=== PATIENT | male | born 1955 | race Caucasian/White ===

== ENCOUNTER 2024-08-14 01:14 | Observation (INO) | payer MEDICARE ==
[2024-08-14] VITALS (15 sets, daily range): BP systolic 89–154; BP diastolic 41–99
[~2024-08-14] VITALS: Ht 152.4 cm; Wt 95.6 kg
--- NOTE | 2024-08-14 01:14 | NUR ---
PT NOT IN WAITING RM, REGISTRATION NOTIFIES RACECAR DRIVER THAT PT IS IN BR AT THIS TIME. WILL CALL WHEN PT RETURNS.
--- NOTE | 2024-08-14 01:23 | NUR ---
PT TO RM # 6 WITH STEADY GAIT, NOTIFIED, PT EKG TKN, CONNECTED TO CONTINUOUS MONITORING. A-FIB RVR NOTED, AWARE.
[2024-08-14] MEDS ORDERED: DILTIAZEM HCL 125 MG in SODIUM CHLORIDE 0.9% 100 ML IV ONE (01:30)
[2024-08-14] MEDS ORDERED: SODIUM CHLORIDE 0.9% 250 ML IV PRN (01:30)
[2024-08-14] MEDS ORDERED: dilTIAZem HCL 50 MG/10 ML SDV IV ONE (01:30)
[2024-08-14 01:43] LABS: BASO% 0.4 % (0-3); EOS% 4.6 % (0-8); HEMATOCRIT 48.6 % (39.0-50.0); HEMOGLOBIN 15.9 g/dl (14.0-18.0); IMMATURE GRANULOCYTES 0.8 % (0.0-5.0); LYMPH% 28.8 % (15-41); MEAN CELL VOLUME 94.9 fL CALC (80.0-100.0); MEAN CORPUSCULAR HGB 31.1 pG CALC (26.0-32.0); MEAN CORPUSCULAR HGB CONC 32.7 g/dL CAL (32.0-36.0); MONO% 9.5 % (2-13); NEUT# 4.24 thou/uL (1.82-7.42); NEUT% 55.9 % (42-76); RED BLOOD COUNT 5.12 mill/uL (4.70-6.10); RED CELL DISTRI WIDTH 12.8 % (11.5-15.5)
--- NOTE | 2024-08-14 01:55 | NUR ---
PT GTT MAINTAINED/TITRATED PER ORDERS, PT UPDATED/EDUCATED ON PLAN OF CARE AND CONDITION AT THIS TIME, URINE COLLECTED, AWAITING RESULTS AT THIS TIME.
[2024-08-14] MEDS ORDERED: TAMSULOSIN0.4 MG PO (02:04)
[2024-08-14] MEDS ORDERED: ATIVAN0.5 MG PO (02:04)
[2024-08-14 02:17] LABS: ACT PARTIAL THROMBO TIME 25.1 SECONDS (20.0-32.5)
[2024-08-14 02:18] LABS: ALBUMIN 4.7 g/dL (3.2-5.0); ALKALINE PHOSPHATASE 71 u/l (38-126); ANION GAP 14 (6-22 (CALC)); BILIRUBIN, TOTAL 0.8 mg/dL (0.2-1.3); BUN 11 mg/dL (8-23); BUN/CREATININE RATIO 9 (12-20 (CALC)); CARBON DIOXIDE 28 mmol/l (22-30); CHLORIDE 104 mmol/l (95-108); CREATININE 1.2 mg/dL (0.7-1.3); ESTIMATED GFR 65 ML/MIN (>=90 (CALC)); POTASSIUM 3.8 mmol/l (3.5-5.1); SGOT/AST 38 u/l (19-48); SODIUM 142 mmol/l (137-146); TOTAL PROTEIN 7.8 g/dL (6.3-8.2)
[2024-08-14 02:26] LABS: URINE BILIRUBIN - DIPSTICK Negative (NEGATIVE); URINE BLOOD DIPSTICK Trace-lysed (NEGATIVE); URINE GLUCOSE - DIPSTICK Negative (NEGATIVE); URINE KETONE Negative (NEGATIVE); URINE LEUK ESTERASE Negative (NEGATIVE); URINE NITRITE - DIPSTICK Negative (Negative); URINE PROTEIN - DIPSTICK Negative (NEG-TRACE); URINE SPECIFIC GRAVITY 1.015; URINE UROBILINOGEN - DIPSTICK 0.2 E.U./dL (0.2)
[2024-08-14 02:27] LABS: URINE COLOR Yellow
[2024-08-14 02:38] LABS: D-DIMER > 35.20 mg/L (0.19-0.60)
--- NOTE | 2024-08-14 02:50 | NUR ---
NOTIFIED DUE TO PT ELEVATED Rey-MD MATT VERBALIZES PLACE CTA CHEST AT THIS TIME.
--- NOTE | 2024-08-14 02:55 | NUR ---
PT NOTED TO BE CONVERTED TO NSR AT 72. PT GTT TITRATED DOWN AT THIS TIME, NAD NOTED, VSS, PT VOICES RELIEF OF PALPITATIONS. AWAITING ALL FURTHER RESULTS AND CT SCAN.
--- NOTE | 2024-08-14 03:15 | NUR ---
GTT TITRATED OFF AT THIS TIME, PT VS REMAIN STABLE, NAD NOTED, PT TO CT SCAN AT THIS TIME.
--- NOTE | 2024-08-14 04:00 | NUR ---
PT ON CONTINUOUS MONITOR, REMAINS NSR AT 60S HR, PT UPDATED ON CONTINUOUS PLAN OF CARE, NAD NOTED, PT REPEAT TROPONIN COLLECTED AT THIS TIME.
[2024-08-14] MEDS ORDERED: dilTIAZem HCl COATED BEADS 240 MG/CAP PO ONE (05:35)
--- NOTE | 2024-08-14 05:40 | NUR ---
PT UPDATED ON PLAN OF CARE, MD AT BEDSIDE FOR DISCUSSION OF ADMISSION, EKG REPEAT TKN, PT VSS, NAD NOTED, AWAITING RM ASSIGNMENT AND ACCEPTANCE FROM ADMITTING MD.
[2024-08-14] MEDS ORDERED: ACETAMINOPHEN 325 MG/TAB PO PRN (06:05)
[2024-08-14] MEDS ORDERED: Polyethylene Glycol 3350 17 GM/PKT PO PRN (06:05)
[2024-08-14] MEDS ORDERED: FAMOTIDINE 10MG/ML 2ML SDV IV PRN (06:05)
[2024-08-14] MEDS ORDERED: ONDANSETRON HCl 4 MG/2 ML SDV IV PRN (06:05)
[2024-08-14] MEDS ORDERED: ONDANSETRON 4 MG/TAB ODT PO PRN (06:05)
[2024-08-14] MEDS ORDERED: ALUM & MAG HYDROX-SIMETHICONE 30 ML PO PRN (06:05)
--- NOTE | 2024-08-14 06:05 | NUR ---
NURSING FARM HELPER NOTIFIED FOR MEDICATION. MD VOICES MED ABLE TO WAIT UNTIL ADMISSION. PT VSS, AWAITING RM ASSIGNMENT AT THIS TIME. NAD NOTED.
[2024-08-14] MEDS ORDERED: ENOXAPARIN SODIUM 40 MG/0.4 ML SYR SC SCH (06:15)
--- NOTE | 2024-08-14 06:17 | NUR ---
ATTEMPTED TO CALL REPORT, NO ANSWER FROM [facility] AT THIS TIME.
--- NOTE | 2024-08-14 06:29 | NUR ---
REPORT CALLED TO CLINTON SOLANO AT THIS TIME.
--- NOTE | 2024-08-14 06:35 | NUR ---
PT TRANSPORTED TO [facility] AT THIS TIME VIA W/C, NAD NOTED, NURSE/P 3 ARMAMENT/ORDNANCE IMA TECHNICIAN AT BEDSIDE.
[2024-08-14] MEDS ORDERED: LORazepam 0.5 MG/TAB PO PRN (07:50)
--- NOTE | 2024-08-14 07:55 | NUR ---
PT IS AOX4 SITTING UP IN CHAIR. RESPIRATIONS ARE EVEN AND UNLABORED ON ROOM AIR, LUNGS ARE CLEAR THROUGHOUT, BOWEL SOUNDS ARE ACTIVE, PEDAL PULSES ARE PALPABLE TO THE TOUCH, PT DENIES PAIN AT THIS TIME. PT IS CONCERNED WITH GETTING HIS HOME FLOMAX AND ATIVAN ORDERED. NOTIFIED GLENYS MORLEY OF PTS CONCERN FOR GETTING HOME MEDS ARDERED.
[2024-08-14] MEDS ORDERED: TAMSULOSIN HCL 0.4 MG CAP PO SCH (09:00)
[2024-08-14] MEDS ORDERED: APIXABAN BASE 5 MG TAB PO SCH (09:00)
[2024-08-14] MEDS ORDERED: METOPROLOL SUCCINATE 50 MG/TAB PO SCH (09:00)
--- NOTE | 2024-08-14 09:31 | NUR ---
SILVERIO REMOVED, PT TOLWRATED WITH NO COMPLAINTS.
[2024-08-14] MEDS ORDERED: TOPROL XL50 MG PO (11:04)
[2024-08-14] MEDS ORDERED: ELIQUIS5 MG PO (11:04)
--- NOTE | 2024-08-14 11:42 | NUR ---
TELE CALLED TO REPORT PT'S HR AT 47. NURSE CHECKED ON PT, PT SITTING UP IN CHAIR, DENIES ANY PAIN OR DISCOMFORT AT THIS TIME. RECHECKED PT'S BP ITS AT 97/47.
--- NOTE | 2024-08-14 11:45 | NUR ---
NOTIFIED GLENYSJessica BISHOPP OF PTS BP OF 97/47 AND HEART RATE OF 48. TOLD TO KEEP PT TILL BP AND HR STABLIZE FOR DC.
[2024-08-14] MEDS ORDERED: XARELTO20 MG PO (12:40)
--- NOTE | 2024-08-14 14:18 | NUR ---
BLADDER SCANNED PT. PT HAS 435ML PRESENT AT THIS TIME.
--- NOTE | 2024-08-14 16:00 | NUR ---
REVIEWED DISCHARGE INSTRUCTIONS WITH PT AND PT'S , REMOVED IV, REMOVED TELE MONITOR AND PLACED IT IN RETURN BIN AT NURSES STATION.
== END 2024-08-14 16:03 | disposition home or self-care (01) ==
LOC: ED 01:14 → ED-I 05:50 → ED 06:07 → MS2 06:08
PROVIDERS: Family Medicine; ADMIT Internal Medicine; ATTEND Internal Medicine
DX: I48.91 Unspecified atrial fibrillation (principal); F41.9 Anxiety disorder, unspecified; N40.0 Benign prostatic hyperplasia without lower urinary tract symptoms; G47.30 Sleep apnea, unspecified; Z91.199 Patient's noncompliance with other medical treatment and regimen due to unspecified reason
CPT/HCPCS: J1650; Q9967